=== PATIENT | female | born 1985 | race Caucasian/White ===

== ENCOUNTER → 2016-08-26 | Outpatient (CLI) | payer MEDICAID ==
[~2016-08-26] MED LIST: AMOXIL500 MG PO; ANUSOL-HC2.5% RC; AUGMENTIN XR 101 TER PO; FLEXERIL10 MG PO; KEFLEX 500MG.500 MG PO; LEVOTHYROXINE0.05 MG PO; MACROBID 100MG100 MG PO; MULTIVITAMIN1 TA1 PO; NAPROSYN 500MG500 MG PO; NAPROXEN SODIU500 MG PO; OMEPRAZOLE20 MG PO; ORTHO TRI-CYCLE1 TAB PO; PHENERGAN VC +120 ML PO; SEPTRA DS 800 M1 TAB PO; ULTRAM 50 MG TA50 MG PO; VITAMIN B12500 MCG PO; VITAMIN D1000 IU PO
--- NOTE | 2016-09-09 10:40 | RADIOLOGY REPORT PS360 ---
US BIOPSY OR PARACENTESIS, US ORGAN SITE (THYROID), US THYROID HISTORY: THYROID NODULE ORDERING PHYSICIAN: Ronen Palacios MD PATIENT AGE: 31 years COMPARISON: None TECHNIQUE: Following obtaining informed consent, using aseptic technique and local anesthesia with buffered lidocaine, fine-needle aspiration was performed of the nodule of interest in the right lobe of the thyroid gland using sonographic guidance. 3 passes were made into the nodule with a 25-gauge needle. Specimen was given to cytology. The patient tolerated the procedure well without evidence of immediate complications and left the ultrasound suite in stable condition. CYTOLOGY:Negative for malignancy. Consistent with chronic lymphocytic thyroiditis IMPRESSION: Status post FNA of the right thyroid nodule joint benign findings.
== END ==
LOC: RAD 09:44
PROC: 0G9H3ZX Drainage of Right Thyroid Gland Lobe, Percutaneous Approach, Diagnostic (ICD-10-PCS; principal; 2016-08-26)
DX: E06.9 Thyroiditis, unspecified (principal)

== ENCOUNTER → 2017-02-25 | Outpatient (CLI) | payer MEDICAID ==
--- NOTE | 2017-02-25 17:13 | RADIOLOGY REPORT PS360 ---
US THYROID HISTORY: Follow-up thyroid nodule THYROID NODULE ORDERING PHYSICIAN: Ronen Palacios MD PATIENT AGE: 32 years COMPARISON: 07/15/2016 FINDINGS: Right lobe: 4.8 x 1.8 x 2.2 cm. There is heterogeneous echogenicity of the right lobe of the thyroid gland. Upper pole nodule once again noted unchanged at 16 x 10 mm. This nodule appears solid. There is a spongiform-appearing nodule in the mid polar region at 21 mm unchanged. Left lobe: 5.2 x 2 x 2.8 cm . Diffuse heterogeneous echogenicity involves the left lobe of the thyroid gland occupying nearly all of the left lobe unchanged Isthmus: ] At 6 mm with heterogeneous echogenicity IMPRESSION: Multinodular goiter overall not significant changed
== END ==
LOC: RAD 13:00
DX: E04.1 Nontoxic single thyroid nodule (principal)